=== PATIENT | female | born 1980 | race African-American/Black ===

== ENCOUNTER 2019-04-28 06:46 | Day surgery (SDC) | payer BC ==
[~2019-04-28 06:46] MED LIST: Lidocaine 1%/Sod Bicarbonate in NS 8.4% 1 ML Syringe IDERM PRN; Sodium Chloride 0.9% 10 ML Syringe FLUSH PRN; ceFAZolin 1 GM Vial ONE
[2019-04-28] MEDS: Lactated Ringers 1,000 ML IV SCH ×2 (07:06→11:47)
[2019-04-28] MEDS ORDERED: Lidocaine 1% with EPINEPHrine 1:100,000 20 ML MDV ONE (07:11)
--- NOTE | 2019-04-28 07:40 | PCM.PREANE ---
Preanesthetic Assessment - Procedure Proposed Procedure: [facility] - Anesthesia/Transfusion/Family Hx Anesthesia History: Prior Anesthesia Without Reaction Family History of Anesthesia Reaction: No - Review of Systems General: No Symptoms Pulmonary: No Symptoms Cardiovascular: No Symptoms Gastrointestinal: No Symptoms Neurological: No Symptoms Other: Reports: None - Physical Assessment NPO Status Date: 04/27/19 NPO Status Time: 20:00 Vital Signs: Last Vital Signs Temp 36.7 C 04/28/19 06:55 Pulse 68 04/28/19 06:55 Resp 16 04/28/19 06:55 BP 158/89 H 04/28/19 06:55 Pulse Ox 98 04/28/19 06:55 Height: 1.65 m Weight: 79.832 kg ASA Class: 1 Airway Class: Mallampati = 2 Dentition: Reports: Normal Dentition Thyro-Mental Finger Breadths: 3 Mouth Opening Finger Breadths: 3 ROM/Head Extension: Full Lungs: Clear to Auscultation, Normal Respiratory Effort Cardiovascular: Regular Rate, Regular Rhythm - Lab Values: Laboratory Last Values WBC 5.97 K/mm3 (3.98-10.04) 04/28/19 07:09 RBC 5.49 M/mm3 (3.98-5.22) H 04/28/19 07:09 Hgb 11.1 gm/dl (11.2-15.7) L 04/28/19 07:09 Hct 36.6 % (34.1-44.9) 04/28/19 07:09 MCV 66.7 fl (79.4-94.8) L 04/28/19 07:09 MCH 20.2 pg (25.6-32.2) L 04/28/19 07:09 MCHC 30.3 g/dl (32.2-35.5) L 04/28/19 07:09 RDW Std Deviation 47.7 fL (36.4-46.3) H 04/28/19 07:09 Plt Count 333 K/mm3 (182-369) 04/28/19 07:09 MPV TNP 04/28/19 07:09 Neut % (Auto) 41.9 % (34.0-71.1) 04/28/19 07:09 Lymph % (Auto) 48.7 % (19.3-51.7) 04/28/19 07:09 [place] % (Auto) 7.2 % (4.7-12.5) 04/28/19 07:09 Eos % (Auto) 2.0 (0.7-5.8) 04/28/19 07:09 Baso % (Auto) 0.2 % (0.1-1.2) 04/28/19 07:09 Neut # (Auto) 2.50 K/mm3 (1.56-6.13) 04/28/19 07:09 Lymph # (Auto) 2.91 K/mm3 (1.18-3.74) 04/28/19 07:09 [place] # (Auto) 0.43 K/mm3 (0.24-0.36) H 04/28/19 07:09 Eos # (Auto) 0.12 K/mm3 (0.04-0.36) 04/28/19 07:09 Baso # (Auto) 0.01 K/mm3 (0.01-0.08) 04/28/19 07:09 Manual Slide Review Abnormal smear 04/28/19 07:09 Sodium 141 mEq/L (136-145) 04/28/19 07:09 Potassium 4.0 mEq/L (3.5-5.1) 04/28/19 07:09 Chloride 107 mEq/L (98-107) 04/28/19 07:09 Carbon Dioxide 26 mEq/L (21-32) 04/28/19 07:09 Anion Gap 12.0 (5-15) 04/28/19 07:09 BUN 7 mg/dL (7-18) 04/28/19 07:09 Creatinine 0.6 mg/dL (0.55-1.02) 04/28/19 07:09 Est Cr Clr Drug Dosing TNP 04/28/19 07:09 Estimated GFR (MDRD) > 60 mL/min (>60) 04/28/19 07:09 BUN/Creatinine Ratio 11.7 (14-18) L 04/28/19 07:09 Glucose 108 mg/dL (74-106) H 04/28/19 07:09 Calcium 8.9 mg/dL (8.5-10.1) 04/28/19 07:09 - Allergies Allergies/Adverse Reactions: Allergies Allergy/AdvReac Type Severity Reaction Status Date / Time Pork/Porcine Containing Allergy Cannot Verified 04/27/19 13:02 Products Remember - Acknowledgements Anesthesia Type Planned: General Anesthesia Pt an Appropriate Candidate for the Planned Anesthesia: Yes Alternatives and Risks of Anesthesia Discussed w Pt/Guardian: Yes Pt/Guardian Understands and Agrees with Anesthesia Plan: Yes PreAnesthesia Questionnaire HEENT History: Reports: Impaired Vision Cardiovascular History: Reports: None Respiratory History: Reports: None Gastrointestinal History: Reports: None 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: , Other (See Below) Other OB/BYN History: fibroid uterus, tubal, leiomyoma Musculoskeletal History: Reports: None Neurological History: Reports: None Psychiatric History: Reports: None Endocrine/Metabolic History: Reports: Diabetes, Gestational Hematologic History: Reports: None Immunologic History: Reports: None Oncologic (Cancer) History: Reports: None Dermatologic History: Reports: None - Past Surgical History Head Surgeries/Procedures: Reports: None HEENT Surgical History: Reports: None Cardiovascular Surgical History: Reports: None Respiratory Surgical History: Reports: None GI Surgical History: Reports: None Female Surgical History: Reports: Section Male Surgical History: Reports: None Endocrine Surgical History: Reports: None Neurological Surgical History: Reports: None Musculoskeletal Surgical History: Reports: None Oncologic Surgical History: Reports: None Dermatological Surgical History: Reports: None - SUBSTANCE USE Smoking Status *Q: Never Smoker Recreational Drug Use History: No - HOME MEDS Home Medications: Home Meds Ferrous Sulfate [Iron] 325 mg PO DAILY 04/27/19 [History] Pnv No.95/Ferrous Fum/Folic AC [ Caplet] 1 tab PO DAILY 04/27/19 [ History] - CURRENT (IN HOUSE) MEDS Current Meds: Current Medications Lactated Ringer's (Ringers, Lactated) 1,000 mls @ 125 mls/hr IV ASDIRECTED RADHA Lidocaine/Sodium Bicarbonate (Buffered Lidocaine 1% In Ns 8.4%) 0.25 ml IDERM ONETIME PRN PRN Reason: Prior to IV Start Sodium Chloride (Saline Flush) 10 ml FLUSH ASDIRECTED PRN PRN Reason: Keep Vein Open Discontinued Medications Cefazolin Sodium (Ancef) Confirm Administered Dose 2 gm .ROUTE .STK-MED ONE Stop: 04/28/19 06:15 Lidocaine/Epinephrine (Xylocaine 1% With Epinephrine 1:100,000) Confirm Administered Dose 20 ml .ROUTE .STK-MED ONE Stop: 04/28/19 07:12
[2019-04-28] MEDS ORDERED: Bupivacaine 0.5% 30 ML SDV ONE (07:41)
--- NOTE | 2019-04-28 07:42 | PCM.OPNOTE ---
- General Post-Op/Procedure Note Date of Surgery/Procedure: 04/28/19 Operative Procedure(s): Excision of residual right fallopian tube. Laparoscopic assisted vaginal hysterectomy Findings: Large amount of right fallopian tube present which is dilated slightly. Minimal residual left fallopian tube. Large fibroid projecting off the fundus of the uterus, about 6 cm in size. Moderate amount of scar tissue present between the uterus and bladder. Normal appearance of the ovaries. Pre Op Diagnosis: Abnormal uterine bleeding. 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 The patient was taken to the Operating Room where general anesthesia was induced without complication. The patient was placed in dorsal lithotomy with David Stirrups and an exam under anesthesia revealed the findings detailed above. The patient was then prepped and draped in the usual sterile fashion. A sterile bivalve speculum was placed into the vagina and the anterior lip of the cervix was grasped with a single tooth tenaculum and a Whika uterine manipulator was placed to allow uterine manipulation throughout the procedure. The speculum and single tooth tenaculum were removed from the vagina. A Barrios catheter was placed in sterile fashion. Attention was then turned to the patients abdomen where a Veress needle was carefully introduced into the peritoneal cavity while tenting the abdominal wall. Intraperitoneal placement was confirmed by free flow of saline into the abdomen from a syringe open to gravity and with a low intraabdominal pressure with insufflation of C02 gas on low flow. The gas was increased to high flow and a pneumoperitoneum was obtained with C02 gas to a pressure of 15 mm Hg. A 5 mm skin incision was made in a vertical fashion in the umbilical fold and a 5 mm blunt trocar was inserted into the abdomen with direct visualization of the laparoscope through the clear view trocar lens. 5 mm skin incisions were made in both the left and right lower quadrants approximately 10 cm lateral and 3 cm inferior to the umbilicus. 5 mm blunt trocars were inserted into the abdomen under direct visualization with care to avoid the abdominal wall vasculature. A blunt probe and grasper were inserted through the accessory ports and a survey of the abdomen revealed the findings detailed above. The right fallopian tube was elevated with the blunt graspers at the fimbriated end. The LigaSure was used to grasp, elevate, cauterize and transect the mesosalpinx from the fimbriated end toward the uterus to the level of the round ligament. The fallopian tube was then amputated at the cornua and placed in the posterior cul de sac. The round ligament on the right was then elevated, cauterized, and transected with the Ligasure. Hemostasis was noted. Next, the vesicouterine peritoneum was elevated gently with a blunt grasper and the LigaSure was used dissect the vesicouterine peritoneum to make a bladder flap. Two more small bites along the right side of the uterus were made with the Ligasure to skeletonize the uterine artery. Hemostasis was noted. Next, the left round ligament was elevated, cauterized, and transected and a couple of additional small bites on the left side of the uterus were made. Hemostasis as noted. The CO2 gas was turned off and the laparoscope was removed. Attention was then turned to the vaginal portion of the procedure. A short weighted speculum was placed in the vagina, and the cervix was grasped with a single tooth tenaculum. The cervix was injected circumferentially with approximately 15 cc of 1% lidocaine with dilute epinephrine. The cervix was then circumferentially incised with a scalpel. A Raytec was used to bluntly dissect the cervix circumferentially until an avascular plane was obtained. The posterior cul-de-sac was entered sharply without difficulty. A 0-Vicryl pop-off suture was placed at six o'clock to include the posterior vaginal mucosa and posterior peritoneum. This stitch was tagged with a straight clamp to help with vaginal cuff closure at the end of the case. The short weighted speculum was replaced by the long weighted speculum. The uterosacral ligaments were grasped on either side with the LigaSure, cauterized, and transected. Hemostasis was assured. The bladder was dissected off the pubovesical cervical fascia anteriorly with a sponge and blunt dissection. The anterior cul-de-sac was then entered sharply without difficulty. The cardinal ligaments were then serially clamped with the LigaSure, cauterized, and transected. The uterine arteries were then clamped with the LigaSure, cauterized, and transected. Hemostasis was noted. The fundus and adnexa were confirmed to be free of any further peritoneal attachments and then were pulled out through the vagina. The posterior peritoneum was then closed with a running, locked 0 Vicryl suture. The vaginal cuff was closed with a 0-Vicryl in a running locked fashion. Hemostasis was noted. Attention was then again turned to the abdomen. All members of the surgical team changed gloves. The laparoscope was again inserted and the abdomen was again insufflated with CO2. The pedicles were again visualized. Andrew seal was placed along the vaginal cuff. Hemostasis was confirmed. The patient was taken out of Trendelenberg position. The accessory trocars were removed under direct visualization. The pneumoperitoneum was allowed to escape. The umbilical trocar was removed and lastly the camera was removed from the abdomen under direct visualization to confirm no herniation into the port site. All skin incisions were re-approximated with 4-0 Monocryl and sealed with Dermabond. Hemostasis was noted. A total of 10 cc of 0.25% Marcaine was injected into the subcutaneous tissues surrounding the skin incisions for local anesthesia. All sponge, lap, needle, and instrument counts were correct x 2. The patient tolerated the procedure well and there were no complications.
[2019-04-28] MEDS ORDERED: Ondansetron 4 MG/2 ML SDV ONE (07:49)
[2019-04-28] MEDS ORDERED: Lidocaine 1% 4 ML ONE (07:49)
[2019-04-28] MEDS ORDERED: Lactated Ringers 1,000 ML ONE (07:49)
[2019-04-28] MEDS ORDERED: Rocuronium 50 MG/5 ML Vial ONE (07:49)
[2019-04-28] MEDS ORDERED: Midazolam 1 MG/ML 2 ML SDV ONE (07:50)
[2019-04-28] MEDS ORDERED: Propofol 200 MG/20 ML SDV ONE (07:50)
[2019-04-28] MEDS ORDERED: Ketorolac 30 MG/ML SDV ONE (07:50)
[2019-04-28] MEDS ORDERED: Dexamethasone 4 MG/ML 5 ML MDV ONE (07:50)
[2019-04-28] MEDS ORDERED: fentaNYL 250 MCG/5 ML SDV ONE (07:50)
[2019-04-28] MEDS ORDERED: HYDROmorphone 0.5 MG/0.5 ML Syringe IVPUSH PRN (09:19)
[2019-04-28] MEDS ORDERED: fentaNYL 100 MCG/2 ML SDV IVPUSH PRN (09:19)
[2019-04-28] MEDS ORDERED: Ondansetron 4 MG/2 ML SDV IVPUSH PRN (09:19)
--- NOTE | 2019-04-28 11:33 | PCM.POSTAN ---
POST ANESTHESIA ASSESSMENT - MENTAL STATUS Mental Status: Alert, Oriented - VITAL SIGNS Vital Signs: Last Vital Signs Temp 36.7 C 04/28/19 06:55 Pulse 68 04/28/19 06:55 Resp 16 04/28/19 06:55 BP 154/91 H 04/28/19 07:40 Pulse Ox 98 04/28/19 06:55 1126 132/78 60 16 95% 97.4F - RESPIRATORY Respiratory Status: Respiratory Rate WNL, Airway Patent, O2 Saturation Stable, Supplemental Oxygen - CARDIOVASCULAR CV Status: Pulse Rate WNL, Blood Pressure Stable - GASTROINTESTINAL GI Status: No Symptoms - PAIN Pain Score: 0 - POST OP HYDRATION Hydration Status: Adequate & Stable
[2019-04-28] MEDS ORDERED: Acetaminophen/oxyCODONE 325-5 MG Tab PO PRN (13:04)
[2019-04-28 13:49] VITALS: BP 122/73; PULSE 77
--- NOTE | 2019-04-29 06:45 | PCM48HPAN ---
Post Anesthesia Note - EVALUATION WITHIN 48HRS OF ANESTHETIC Vital Signs in Normal Range: Yes Patient Participated in Evaluation: Yes Respiratory Function Stable: Yes Airway Patent: Yes Cardiovascular Function Stable: Yes Hydration Status Stable: Yes Pain Control Satisfactory: Yes Nausea and Vomiting Control Satisfactory: Yes Mental Status Recovered: Yes Vital Signs: Last Vital Signs Temp 36.4 C 04/28/19 13:45 Pulse 77 04/28/19 13:45 Resp 16 04/28/19 13:45 BP 122/73 04/28/19 13:45 Pulse Ox 100 04/28/19 13:45
== END 2019-04-28 14:02 | disposition home or self-care (01) ==
LOC: JD.SDS 06:46
PROVIDERS: ATTEND Obstetrics & Gynecology
DX: D25.1 Intramural leiomyoma of uterus (principal); N72 Inflammatory disease of cervix uteri; N85.8 Other specified noninflammatory disorders of uterus; N83.8 Other noninflammatory disorders of ovary, fallopian tube and broad ligament; Z79.899 Other long term (current) drug therapy; Z91.018 Allergy to other foods
CPT/HCPCS: 36415; 58552; 80048; 85025; 86850; 86900; 86901; A9270; J0690; J1100; J1885; J2001; J2250; J2405; J2704; J2710; J3010; J3490; J7120; 00944